=== PATIENT | female | born 1950 | race Caucasian/White ===

== ENCOUNTER → 2019-07-08 08:00 | Outpatient (BNVA) | payer MEDICARE, MEDICAID, SELFPAY | PROVIDERS: Family Provider Nurse Practitioner; PCP Nurse Practitioner; Visit Provider Psychiatry & Neurology Psychiatry | DX: F33.40 Major depressive disorder, recurrent, in remission, unspecified (principal); F41.1 Generalized anxiety disorder | CPT/HCPCS: 99213 ==

== ENCOUNTER → 2019-09-02 07:26 | Outpatient (BNVA) | payer MEDICARE, MEDICAID, SELFPAY | PROVIDERS: Family Provider Nurse Practitioner; PCP Nurse Practitioner; Visit Provider Psychiatry & Neurology Psychiatry | DX: F33.40 Major depressive disorder, recurrent, in remission, unspecified (principal); F41.1 Generalized anxiety disorder; G47.33 Obstructive sleep apnea (adult) (pediatric) | CPT/HCPCS: 99214 ==

== ENCOUNTER → 2019-09-05 10:36 | Outpatient (BNVA) | payer MEDICARE, MEDICAID, SELFPAY | PROVIDERS: Family Provider Nurse Practitioner; PCP Nurse Practitioner; Visit Provider Nurse Practitioner | DX: M25.561 Pain in right knee (principal); E78.2 Mixed hyperlipidemia; K22.70 Barrett's esophagus without dysplasia; F41.1 Generalized anxiety disorder; G47.33 Obstructive sleep apnea (adult) (pediatric); M54.5 Low back pain; M79.605 Pain in left leg | CPT/HCPCS: 73562; 80053; 80061; 81000; 83735; 84443 ==

== ENCOUNTER → 2019-09-30 07:34 | Outpatient (BNVA) | payer MEDICARE, MEDICAID, SELFPAY | PROVIDERS: Family Provider Nurse Practitioner; PCP Nurse Practitioner; Visit Provider Psychiatry & Neurology Psychiatry | DX: F41.1 Generalized anxiety disorder (principal); F33.42 Major depressive disorder, recurrent, in full remission | CPT/HCPCS: 99213 ==

== ENCOUNTER → 2019-11-27 07:45 | Outpatient (BNVA) | payer MEDICARE, MEDICAID, SELFPAY | PROVIDERS: Family Provider Nurse Practitioner; PCP Nurse Practitioner; Visit Provider Psychiatry & Neurology Psychiatry | DX: F33.40 Major depressive disorder, recurrent, in remission, unspecified (principal); G47.33 Obstructive sleep apnea (adult) (pediatric); F41.1 Generalized anxiety disorder | CPT/HCPCS: 99213 ==

== ENCOUNTER → 2020-03-04 07:34 | Outpatient (BNVA) | payer MEDICARE, MEDICAID, SELFPAY | PROVIDERS: Family Provider Nurse Practitioner; PCP Nurse Practitioner; Visit Provider Psychiatry & Neurology Psychiatry | DX: F33.40 Major depressive disorder, recurrent, in remission, unspecified (principal); F41.1 Generalized anxiety disorder; G47.33 Obstructive sleep apnea (adult) (pediatric) | CPT/HCPCS: 99213 ==

== ENCOUNTER → 2020-03-31 10:39 | Outpatient (BNVA) | payer MEDICARE, MEDICAID, SELFPAY | PROVIDERS: Family Provider Nurse Practitioner; PCP Nurse Practitioner; Visit Provider Nurse Practitioner | DX: M54.5 Low back pain (principal); M79.605 Pain in left leg; K22.70 Barrett's esophagus without dysplasia; E78.2 Mixed hyperlipidemia; F41.1 Generalized anxiety disorder | CPT/HCPCS: 80053; 80061; 82607; 84443; 85025 ==

== ENCOUNTER → 2020-06-08 07:38 | Outpatient (BNVA) | payer MEDICARE, MEDICAID, SELFPAY | PROVIDERS: Family Provider Nurse Practitioner; PCP Nurse Practitioner; Visit Provider Psychiatry & Neurology Psychiatry | DX: F33.40 Major depressive disorder, recurrent, in remission, unspecified (principal); F41.1 Generalized anxiety disorder | CPT/HCPCS: 99213 ==

== ENCOUNTER → 2020-08-04 11:35 | Outpatient (BNVA) | payer MEDICARE, MEDICAID, SELFPAY | PROVIDERS: Family Provider Nurse Practitioner; PCP Nurse Practitioner; Visit Provider Orthopaedic Surgery | DX: M54.5 Low back pain (principal); M51.36 Other intervertebral disc degeneration, lumbar region | CPT/HCPCS: 72110 ==

== ENCOUNTER 2020-08-21 08:02 | Outpatient (CLI) | payer MEDICARE, MEDICAID, SELFPAY ==
--- NOTE | 2020-08-21 08:14 | MR_ITS ---
WS: [id number] MRI LUMBAR SPINE NONCONTRAST HISTORY: M54.5 - Low back pain COMPARISON: 12/07/2017 TECHNIQUE: Sagittal and axial multisequence imaging is submitted. Mild increase in lumbar lordosis. L4 anterolisthesis by 3 mm without significant progression since th e prior study. Benign hemangioma within T11. Very mild disc space narrowing and desiccation throughout the lumbar spine. No marrow edema or acute fracture. Nerve root sleeve diverticula noted at T11-12 and T12-L1 on the LEFT. Conus terminates normally at L1. L1-L2: Mild LEFT facet joint arthritis and foraminal narrowing. No significant stenosis. L2-L3: Mild annular disc bulging with facet and ligamentum flavum hypertrophy. Mild foraminal narrowi ng. L3-L4: Mild annular disc bulging and facet joint arthritis. Very minimal encroachment into the thecal sac but no high-grade stenosis. L4-L5: Mild annular disc bulging with moderate to severe facet joint arthritis. Moderate ligamentum f lavum hypertrophy encroaching into the thecal sac with narrowing. Increase fluid in the facet joints bilaterally. The central stenosis has progressed since the prior study. Mild subarticular foraminal n arrowing. L5-S1: Very mild annular disc bulging. RIGHT paracentral annular fissure unchanged. Moderate ligament um flavum hypertrophy and facet arthritis encroaching into the subarticular recess. Only mild subarti cular recess narrowing. Similar to the prior study. Multifocal areas of cortical thinning and atrophy involving the RIGHT kidney similar to the prior pk dy. Unchanged 7 mm cyst in the RIGHT kidney. MR/MR lumbar spine wo con* [id number] IMPRESSION: 1. Mild central stenosis at L4-5 and subarticular recess stenosis which has in creased since 12/07/2017. 2. Increasing facet joint osteoarthritis and mild synovitis at L4-5 and L5-S1. 3. No severe central or foraminal stenosis.
== END 2020-08-21 08:03 | disposition home or self-care (01) ==
LOC: RADWPI 08:06
PROVIDERS: PCP Nurse Practitioner; Visit Provider Orthopaedic Surgery
DX: M54.5 Low back pain (principal); M79.605 Pain in left leg; M48.061 Spinal stenosis, lumbar region without neurogenic claudication; M47.816 Spondylosis without myelopathy or radiculopathy, lumbar region; M65.88 Other synovitis and tenosynovitis, other site
CPT/HCPCS: 72148

== ENCOUNTER → 2020-10-12 12:39 | Day surgery (SDC) | payer MEDICARE, MEDICAID, SELFPAY | PROVIDERS: PCP Nurse Practitioner; Visit Provider Orthopaedic Surgery | DX: Z01.818 Encounter for other preprocedural examination (principal) | CPT/HCPCS: 93005 ==

== ENCOUNTER → 2020-10-13 10:08 | Outpatient (BNVA) | payer MEDICARE, MEDICAID, SELFPAY | PROVIDERS: PCP Nurse Practitioner; Visit Provider Nurse Practitioner | DX: Z01.812 Encounter for preprocedural laboratory examination (principal); Z20.822 Contact with and (suspected) exposure to COVID-19; M48.062 Spinal stenosis, lumbar region with neurogenic claudication; E78.2 Mixed hyperlipidemia | CPT/HCPCS: 80053; 80061; 85025; 87635 ==

== ENCOUNTER → 2020-10-14 07:03 | Outpatient (BNVA) | payer MEDICARE, MEDICAID, SELFPAY | PROVIDERS: PCP Nurse Practitioner; Visit Provider Psychiatry & Neurology Psychiatry | DX: F33.40 Major depressive disorder, recurrent, in remission, unspecified (principal); F41.1 Generalized anxiety disorder; G47.33 Obstructive sleep apnea (adult) (pediatric) | CPT/HCPCS: 99213 ==

== ENCOUNTER 2020-10-19 05:51 | Day surgery (SDC) | payer MEDICARE, MEDICAID, SELFPAY ==
[2020-10-12 09:26] VITALS: BMI 31.9
--- NOTE | 2020-10-12 12:39 | ECG_ITS ---
Test Date: 2020-10-12 Pat Name: Josi Ambrocio Department: Room: Gender: Female Bank Guard: : [id number] Requested By: David Blackman Order Number: [id number] Trav MD: Cee Leal M.D. Measurements Intervals [place] Rate: 88 P: 24 MO: 167 QRS: -48 QRSD: 81 T: 35 QT: 363 QTc: 441 Interpretive Statements SINUS RHYTHM LEFT ANTERIOR FASCICULAR BLOCK [QRS AXIS <= -45, QR IN I, RS IN II] MINIMAL VOLTAGE CRITERIA FOR LVH, CONSIDER NORMAL VARIANT [MEETS CRITERIA IN ONE OF: R(aVL), S(V1), R(V5), R(V5/V6)+S(V1)] POSSIBLE ANTERIOR MYOCARDIAL INFARCTION [30 ms Q WAVE IN V3/V4, OR R < 0.2 mV IN V4], PROBABLY OLD Compared to ECG 08/21/2016 13:47:45 Left anterior fascicular block now present Myocardial infarct finding now present Ventricular premature complex(es) no longer present Left-axis deviation no longer present Electronically Signed On 10-12-2020 22:28:48 CDT by Cee Leal M.D. [id number]
--- NOTE | 2020-10-12 16:37 | ANES.PREANE2 ---
Pre-Anesthetic Assessment Pre-Anesthetic Assessment: Height/Weight: Height 1.55 m Weight 76.657 kg Proposed Procedure: Operation Date: 10/19/20 08:45 Proposed Procedures p MIs decompression L3/4 Decompression L4/5 34457 [id number] M48.062(Not Applicable) - Doroteo Rebolledo, DO Was Beta Hortencia taken within 24 hours: N/A Was Clonidine taken within 24 hours: N/A Social: Social History: No alcohol and No tobacco Exam: Pre-Anes Outpt Exam: alert, oriented x 3, clear to auscultation bilaterally and regular rate & rhythm Airway: Submandibular: WNL Cervical ROM: WNL MP: 2 Dentition: Chipped Additional comments: Poor dentition, several missing Pulmonary: Pulmonary: Sleep apnea GI: GI: GERD Metabolic: Metabolic: Hyperlipidemia Musc/skel: Musc/skel: Lower Back Pain Neuropsych: Neuropsych: Anxiety and Depression Anesthetic Plan: ASA status: 3 Anesthesia: General Risk of > 500 ml blood loss (7ml/kg in children): No PFSH Anesthesia PFSH: Medical History Alcohol dependence, in remission Ray's esophagus without dysplasia Generalized anxiety disorder Lumbar pain with radiation down left leg Mixed hyperlipidemia Obstructive sleep apnea Recurrent depressive disorder, in remission Surgical History History of carpal tunnel release of both wrists History of cholecystectomy History of colonoscopy 2017 at [facility] with Dr. Rutledge History of esophagogastroduodenoscopy (EGD) 2017 at [facility] with Dr. Rutledge History of release of tendon Left hand Status post left foot surgery ORIF left foot with plate Status post total shoulder arthroplasty LEFT Family History Mother Cancer Lung cancer Sister Scleroderma Other Lung disease Social History Smoking and tobacco status: never smoked Second hand smoke exposure: No Smoking risk assessment/counseling performed?: No Alcohol intake: never Desire information about alcohol rehabilitation?: No Counseling given: No Desire information about substance/drug rehabilitation?: No Counseling given: No Adopted: No Caregiver/support person: No Lives independently: Yes Marital status: Current occupational status: retired History of recent travel: No Current gender identity: Female Data Anesthesia Cardiac Studies: No Data to Display
[2020-10-19] VITALS (7 sets, daily range): BP systolic 129–172; BP diastolic 89–111; PULSE 77–115; RESP 13–21; TEMP 36.1–36.7; O2SAT 92–99
--- NOTE | 2020-10-19 | XR_ITS ---
WS: [id number] Lumbar spine, C-arm fluoroscopy view, 10/19/2020 Clinical Data: decompression L3/4 L4/5 Comparison: Lumbar spine, 08/02/2020. Findings: Dr. Rebolledo performed a lumbar decompression at L3-L4 and L4-L5. XR/XR lumbar spine 1V [id number] Impression: Decompression at L3-L4 and L4-L5.
[2020-10-19] MEDS: sodium chloride 0.9% 1,000 ML 30 ML IV (06:15)
--- NOTE | 2020-10-19 06:31 | P.ANESUD_ITS ---
Pre-Anesthetic Update Pre-Anesthetic Assessment: Date of Surgery/Procedure: 10/19/20 Preop Alda gnosis: lumbar stenosis Proposed Procedure: Operation Date: 10/19/20 07:00 Proposed Procedures p MIs decompression L3/4 Decompression L4/5 26179 48538 M48.062(Not Applicable) - Doroteo Rebolledo, DO Any changes to Pre-Anesthetic Assessment?: No Last Intake: Intake Last Liquid Date 10/18/20 Last Liquid Time 21:00 Last Solid Date 10/18/20 Last Solid Time 18:00 Vitals: Temperature 97.0 F L 10/19/20 06:07 Temperature Source Temporal Artery S can 10/19/20 06:07 Pulse Rate 98 10/19/20 06:07 Respiratory Rate 16 10/19/20 06:07 Blood Pressure 130/98 10/19/20 06:07 Blood Pressure Jeanie n 108 10/19/20 06:07 Pulse Oximetry 99 10/19/20 06:07 Oxygen Delivery Me thod 10/19/20 06:07 Exam: Pre-Anes Outpt Exam: alert, oriented x 3, clear to auscultation bilaterally and regular rate & rhythm Cardiac Studies: No Data to Display
--- NOTE | 2020-10-19 06:38 | PM.HP ---
Providers/Chief Complaint Primary Care Provider: GHANSHYAM MorelP-C Chief Complaint: MIs decompression 25470 L3/4 Decompression L4/5 History of Present Illness Josi Ambrocio is a 70 year old female Onset: no known injury Duration: gradual Characteristics: sharp, dull aching Severity: severe Location: lumbar Radiating symptoms: left leg Aggravating factors: proglonged sitting, driving. Alleviating factors: nothing Neuro deficits: Patient reports numbness, tingling, weakness, Patient denies incontinence of bowel/bladder, saddle anesthesia. Prior tx: Patient has had injections by Dr. Quiñones in the past however states that they did not help with the pain. Lobito has also completed physical therapy with out [facility] Review of Systems Narrative: General ROS: negative for weight changes, fever ENT ROS: negative for nasal congestion, drainage or bleeding, sore throat, dysphagia or ear pain Eyes: PERRL Hematological and Lymphatic ROS: negative for swollen glands or abnormal bleeding Endocrine ROS: negative for polyuria/polydpsia or new changes in weight Respiratory ROS: negative for cough, shortness of breath, or wheezing Cardiovascular ROS: negative for chest pain or dyspnea on exertion Gastrointestinal ROS: negative for reflux, abdominal pain, change in bowel habits, or black or bloody stools Musculoskeletal ROS: negative for back pain, neck pain, or joint pain or swelling except for current problem Neurological ROS: negative for TIA or stoke symptoms Skin: no rashes Medications/Allergies Home Medications Medication Instructions Recorded Confirmed Last Taken Type nitroglycerin 0.3 mg sublingual 0.3 mg SUBLINGUAL Q5M 07/05/19 10/13/20 Unknown History tablet lactobacillus combination no.8 3 3,000 mmu cells PO DAILY #60 cap 03/31/20 10/19/20 10/18/20 Rx billion cell capsule magnesium oxide 400 mg PO BID #60 tab 03/31/20 10/19/20 10/18/20 Rx atorvastatin 40 mg tablet 40 mg PO DAILY #30 tab 10/13/20 10/19/20 10/18/20 Rx pantoprazole 40 mg tablet,delayed 40 mg PO BID #60 tab 10/13/20 10/19/20 10/18/20 Rx release tizanidine 4 mg capsule 4 mg PO TID PRN #90 cap 10/13/20 10/19/20 10/18/20 Rx paroxetine HCl 40 mg tablet 40 mg PO DAILY #30 tab 10/14/20 10/19/20 10/18/20 Rx Remeron 15 mg PO BEDTIME 10/19/20 10/19/20 10/18/20 History gabapentin [Neurontin] 600 mg PO TID PRN 10/19/20 10/19/20 10/18/20 History Allergies Allergy/AdvReac Type Severity Reaction Status Date / Time Penicillins Allergy Severe Hives Verified 10/12/20 12:31 PFSH Acute PFSH: Medical History Alcohol dependence, in remission Ray's esophagus without dysplasia Generalized anxiety disorder Lumbar pain with radiation down left leg Mixed hyperlipidemia Obstructive sleep apnea Recurrent depressive disorder, in remission Surgical History History of carpal tunnel release of both wrists History of cholecystectomy History of colonoscopy 2017 at [facility] [place] with Dr. Rutledge History of esophagogastroduodenoscopy (EGD) 2017 at [facility] [place] with Dr. Rutledge History of release of tendon Left hand Status post left foot surgery ORIF left foot with plate Status post total shoulder arthroplasty LEFT Family History Mother Cancer Lung cancer Sister Scleroderma Other Lung disease Social History Smoking and tobacco status: never smoked Second hand smoke exposure: No Smoking risk assessment/counseling performed?: No Alcohol intake: former Desire information about alcohol rehabilitation?: No Counseling given: No Desire information about substance/drug rehabilitation?: No Counseling given: No Adopted: No Caregiver/support person: No Lives independently: Yes Marital status: Current occupational status: retired History of recent travel: No Current gender identity: Female Vitals/I&O/Wt Last Vital Signs Temp 97.0 F L 10/19/20 06:07 Pulse 98 10/19/20 06:07 Resp 16 10/19/20 06:07 BP 130/98 10/19/20 06:07 Pulse Ox 99 10/19/20 06:07 Physical Exam Narrative: EXAM NARRATIVE: CONSTITUTIONAL: The patient is a normal appearing [] in no apparent distress. GENERAL: Patient in no acute distress. CARDIAC: Regular rate and rhythm. CHEST: Normal inspiratory effort, normal respiratory rate. ABDOMEN: Soft and nontender. SKIN: Clear, warm and intact. NEURO?PSYCH: The patient is alert and oriented to person, place and time. Sensorv /SILT Motor StrengthShoulder abduction C5 5/5Wrist extension C6 5/5Elbow extension C7 5/5Hand Research Methods Instructor C8 5/5Finger abduction T15/5 Radial/ Ulnar/ Median n intact LowerSensory (SILT)Motor StrengthHin flexion L2/3Ant/inner thigh 5/5Hip adduction L2/3 5/5Knee extension L4 Lat thigh, 5/5Toe dorsiflexion L5 5/5Ankle dorsiflexion L5/ O21Ndtxzyx flexion S1 5/5 DTRBleeps 2+Triceps 2+Brachioradialis 2+Patellar 2+Achilles 2+ MUSCULOSKELETAL: [] UPPEREXTREMITIES: The patient had full active ROM in fingers, wrist, elbow, and shoulder. The patient demonstrated ability to fully flex/extend/abduct/adduct fingers, make ok sign, cross 2nd/3rd digits, extend 1st digit fully.. Radial pulse 2+, CR<2 seconds. LOWER EXTREMITIES: Pt has full, active ROM of toes, ankle, knee, and hip. Dorsalis pedis/posterior tibialis pulses 2+, CR<2 seconds. SPINE: Skin warm, dry, intact. A&P Assessment and plan (1) Lumbar stenosis with neurogenic claudication: MIS decompression Status: Acute Attestations Medical Necessity Statement*: failed conservative tx Coding Level of Care Code Acute Chief Technologist for [facility] Fwd Diagnoses Lumbar stenosis with neurogenic claudication M48.062
[2020-10-19] MEDS: clindamycin 600 MG/50 ML PREMIX 100 MG IV (07:04)
--- NOTE | 2020-10-19 08:12 | PM.OP ---
Operative Report Date of procedure: October 19, 2020 Pre-op Diagnosis: lumbar stenosis Post-op diagnosis: same Procedure Done: 1. Right L3/4 laminectomy with partial facetectomy 2. Right L4/5 laminectomy with partial facetectomy Procedure: 1. Right L3/4 laminectomy with partial facetectomy 2. Right L4/5 laminectomy with partial facetectomy Patient is brought to the operative suite. After undergoing anesthesia they are placed in the supine position. All areas of impingement are well padded. Patient is then prepped and draped in the normal sterile fashion. A skin incision is made over the L3/4 level. This is confirmed under c-arm guidance. A series of dilators are passed and the tubular retractor is docked on the L3 lamina. A bovie is used to clear the soft tissue off the lamina and the L 3/4 facet joint. A high speed kevin is then used to perform the laminectomy and take down the medial aspect of the L 3/4 facet joint. A kerrison rongeure was then used to take down the remaining lamina and smooth the edge of the laminectomy up to the point where the ligamentum flavum attaches. Attention was then brought to the medial aspect of the facet joint. The remaining medial aspect of the superior and inferior aspect of the facet joint were taken down with the kerrison from the pedicle of L3 to L 4. The facet joint had significant hypertrophy. Attention was then brought to the Ligamentum Flavum. The ligament was taken down from the lamina of L3 to L4 and out medially to the remaining facet joint. The ligament was thick. The dura was then exposed. The dura was in good repair. The L3 nerve was then traced with a curette out the L3/4 foramen and found to be adequately decompressed. The L4 nerve was traced with a curette around the L4 pedicle. The lateral recess was opened with a kerrison helping to further decompress the L4 nerve. Wound is then irrigated copiously with saline and surgiflo is used to stop any bleeding. The tubular retractor is removed A skin incision is made over the L4/5 level. This is confirmed under c-arm guidance. A series of dilators are passed and the tubular retractor is docked on the L4 lamina. A bovie is used to clear the soft tissue off the lamina and the L 4/5 facet joint. A high speed kevin is then used to perform the laminectomy and take down the medial aspect of the L 4/5 facet joint. A kerrison rongeure was then used to take down the remaining lamina and smooth the edge of the laminectomy up to the point where the ligamentum flavum attaches. Attention was then brought to the medial aspect of the facet joint. The remaining medial aspect of the superior and inferior aspect of the facet joint were taken down with the kerrison from the pedicle of L4 to L 5. The facet joint had significant hypertrophy. Attention was then brought to the Ligamentum Flavum. The ligament was taken down from the lamina of L4 to L5 and out medially to the remaining facet joint. The ligament was thick. The dura was then exposed. The dura was in good repair. The L4 nerve was then traced with a curette out the L4/5 foramen and found to be adequately decompressed. The L5 nerve was traced with a curette around the L5 pedicle. The lateral recess was opened with a kerrison helping to further decompress the L5 nerve. Wound is then irrigated copiously with saline and surgiflo is used to stop any bleeding. The tubular retractor is removed and the wound is closed with vicryl and monocryl suture. Glue is then used to protect the wound. A sterile dressing is then placed. Patient was then placed in the supine position and transferred to the PACU in stable condition.
--- NOTE | 2020-10-19 08:44 | SUR.PHASEI ---
0841 PATIENT TO OPS AT THIS TIME. DENIES PAIN. RR EVEN AND UNLABORED. TOLERATING ICE CHIPS.
--- NOTE | 2020-10-19 19:29 | ANE.PACU2 ---
Inpatient post-anesthesia follow up: Airway intact: Yes Vital signs: Temperature 97.9 F Pulse Rate 77 Respiratory Rate 16 Blood Pressure 154/91 Pulse Oximetry 99 Oxygen Delivery Me thod Room Air Oxygen Flow Rate 3 Fraction of Inspir ed Oxygen Hydration adequate: Yes Nausea and vomiting: No Pain level: 2 Mental status: Baseline
== END 2020-10-19 09:30 | disposition home or self-care (01) ==
PROVIDERS: PCP Nurse Practitioner; Visit Provider Orthopaedic Surgery
PROC: (CPT 63005; principal; 2020-10-19 07:00)
DX: M48.062 Spinal stenosis, lumbar region with neurogenic claudication (principal); G47.33 Obstructive sleep apnea (adult) (pediatric); E78.2 Mixed hyperlipidemia
CPT/HCPCS: 63047; 63048; 72020; 76000; J1100; J2405; J2704; J2710; J3010; J3490; J7030

== ENCOUNTER → 2020-12-29 12:08 | Outpatient (BNVA) | payer MEDICARE, MEDICAID, SELFPAY | PROVIDERS: PCP Nurse Practitioner; Visit Provider Nurse Practitioner | DX: R53.83 Other fatigue (principal) | CPT/HCPCS: 80053; 81000; 82607; 84443; 85025 ==

== ENCOUNTER → 2020-12-30 09:34 | Outpatient (BNVA) | payer MEDICARE, MEDICAID, SELFPAY | PROVIDERS: PCP Nurse Practitioner; Visit Provider Nurse Practitioner | DX: R53.83 Other fatigue (principal) | CPT/HCPCS: 71046 ==

== ENCOUNTER → 2021-01-08 09:19 | Outpatient (BNVA) | payer MEDICARE, MEDICAID, SELFPAY | PROVIDERS: PCP Nurse Practitioner; Visit Provider Nurse Practitioner | DX: R53.83 Other fatigue (principal) | CPT/HCPCS: 85025 ==

== ENCOUNTER → 2021-02-09 08:02 | Outpatient (BNVA) | payer MEDICARE, MEDICAID, SELFPAY | PROVIDERS: PCP Nurse Practitioner; Visit Provider Psychiatry & Neurology Psychiatry | DX: F33.40 Major depressive disorder, recurrent, in remission, unspecified (principal); F41.1 Generalized anxiety disorder; G47.33 Obstructive sleep apnea (adult) (pediatric); F10.10 Alcohol abuse, uncomplicated | CPT/HCPCS: 99214 ==

== ENCOUNTER → 2021-03-10 07:45 | Outpatient (BNVA) | payer MEDICARE, MEDICAID, SELFPAY | PROVIDERS: PCP Nurse Practitioner; Visit Provider Psychiatry & Neurology Psychiatry | DX: F33.40 Major depressive disorder, recurrent, in remission, unspecified (principal); F41.1 Generalized anxiety disorder; G47.33 Obstructive sleep apnea (adult) (pediatric); F10.10 Alcohol abuse, uncomplicated | CPT/HCPCS: 99213 ==

== ENCOUNTER → 2021-05-10 07:32 | Outpatient (BNVA) | payer MEDICARE, MEDICAID, SELFPAY | PROVIDERS: PCP Nurse Practitioner; Visit Provider Psychiatry & Neurology Psychiatry | DX: F33.40 Major depressive disorder, recurrent, in remission, unspecified (principal); F41.1 Generalized anxiety disorder; F10.10 Alcohol abuse, uncomplicated | CPT/HCPCS: 99214 ==

== ENCOUNTER → 2021-07-21 11:39 | Outpatient (BNVA) | payer MEDICARE, MEDICAID, SELFPAY | PROVIDERS: PCP Nurse Practitioner; Visit Provider Nurse Practitioner | DX: E78.2 Mixed hyperlipidemia (principal); K22.70 Barrett's esophagus without dysplasia; M79.605 Pain in left leg | CPT/HCPCS: 80053; 80061; 84443 ==

== ENCOUNTER → 2021-08-19 13:29 | Outpatient (BNVA) | payer MEDICARE, MEDICAID, SELFPAY | PROVIDERS: PCP Nurse Practitioner; Visit Provider Psychiatry & Neurology Psychiatry | DX: F33.40 Major depressive disorder, recurrent, in remission, unspecified (principal); F41.1 Generalized anxiety disorder; F10.10 Alcohol abuse, uncomplicated | CPT/HCPCS: 99214 ==

== ENCOUNTER → 2021-10-04 11:38 | Outpatient (BNVA) | payer MEDICARE, MEDICAID, SELFPAY | PROVIDERS: PCP Nurse Practitioner; Visit Provider Nurse Practitioner | DX: E03.8 Other specified hypothyroidism (principal); E78.2 Mixed hyperlipidemia; K22.70 Barrett's esophagus without dysplasia; M79.605 Pain in left leg | CPT/HCPCS: 84439; 84443; 84481 ==

== ENCOUNTER → 2022-02-02 11:40 | Outpatient (BNVA) | payer MEDICARE, MEDICAID, SELFPAY | PROVIDERS: PCP Nurse Practitioner; Visit Provider Nurse Practitioner | DX: E03.8 Other specified hypothyroidism (principal); E78.2 Mixed hyperlipidemia; M79.605 Pain in left leg; K22.70 Barrett's esophagus without dysplasia | CPT/HCPCS: 80053; 80061; 84443 ==

== ENCOUNTER → 2022-05-23 11:05 | Outpatient (BNVA) | payer MEDICARE, MEDICAID, SELFPAY | PROVIDERS: PCP Nurse Practitioner; Visit Provider Nurse Practitioner | DX: E78.2 Mixed hyperlipidemia (principal); R10.30 Lower abdominal pain, unspecified | CPT/HCPCS: 80053; 81000; 85025 ==

== ENCOUNTER 2022-06-14 12:35 | Outpatient (CLI) | payer MEDICARE, MEDICAID, SELFPAY ==
[2022-06-14] MEDS: iohexol 350 mg/mL 500 mL Btl (per mL) PO (14:05)
--- NOTE | 2022-06-14 15:00 | CT_ITS ---
WS: [id number] CT ABDOMEN PELVIS TECHNIQUE: Noncontrast CT of the abdomen and pelvis with coronal and sagittal reformatted images. CLINICAL INFORMATION: R10.30 - Lower abdominal pain, unspecified COMPARISON: CT January 20, 2014 DLP: 485.[address] scans at [facility] use at least one of these dose optimization techniques: automated e xposure control; mA and/or kV adjustment per patient size (includes targeted exams where dose is matc hed to clinical indication); or iterative reconstruction. FINDINGS: Noncontrast liver is normal. Small to moderate esophageal hiatal hernia. Lung bases are well aerated. Normal noncontrast spleen. Fatty atrophy of the pancreas. Adrenal glands are normal. RIGHT renal atr ophy. No hydronephrosis in either kidney. Aortic calcification. Tiny fat-containing umbilical hernia. Sigmoid diverticulosis. No evidence of acute diverticulitis. Slight anterolisthesis L4 on L5. CT/CT abdomen pelvis wo con [id number] IMPRESSION: 1. Sigmoid diverticulosis. No evidence of acute diverticulitis. Tortuous sigmo id colon. 2. Prior cholecystectomy. 3. Small moderate esophageal hiatal hernia. 4. No hydronephrosis in either kidney. RIGHT renal atrophy is unchanged. 5. Tiny fat-containing umbilical hernia. 6. No other remarkable findings.
== END 2022-06-14 12:36 | disposition home or self-care (01) ==
LOC: RAD 12:37
PROVIDERS: PCP Nurse Practitioner; Visit Provider Nurse Practitioner
DX: K57.30 Diverticulosis of large intestine without perforation or abscess without bleeding; K42.9 Umbilical hernia without obstruction or gangrene; Z90.49 Acquired absence of other specified parts of digestive tract; K44.9 Diaphragmatic hernia without obstruction or gangrene; N26.1 Atrophy of kidney (terminal)
CPT/HCPCS: 74176; Q9967

== ENCOUNTER → 2022-08-25 15:49 | Outpatient (BNVA) | payer MEDICARE, MEDICAID, SELFPAY | PROVIDERS: PCP Nurse Practitioner; Visit Provider Nurse Practitioner | DX: E03.8 Other specified hypothyroidism (principal); E78.2 Mixed hyperlipidemia; M79.605 Pain in left leg; K22.70 Barrett's esophagus without dysplasia; E78.1 Pure hyperglyceridemia | CPT/HCPCS: 80053; 80061; 84443 ==

== ENCOUNTER → 2022-12-01 15:08 | Outpatient (BNVA) | payer MEDICARE, OTHER, SELFPAY | PROVIDERS: PCP Nurse Practitioner; Visit Provider Nurse Practitioner | DX: E83.52 Hypercalcemia (principal); M79.605 Pain in left leg | CPT/HCPCS: 80053; 81000 ==

== ENCOUNTER → 2023-03-28 14:56 | Outpatient (BNVA) | payer MEDICARE, MEDICAID, SELFPAY | PROVIDERS: PCP Nurse Practitioner; Visit Provider Nurse Practitioner | DX: F41.1 Generalized anxiety disorder (principal); I10 Essential (primary) hypertension; E78.2 Mixed hyperlipidemia; E03.8 Other specified hypothyroidism; E55.9 Vitamin D deficiency, unspecified | CPT/HCPCS: 80053; 80061; 82306; 82607; 84443; 85025 ==

== ENCOUNTER → 2023-09-05 15:18 | Outpatient (BNVA) | payer MEDICARE, SELFPAY | PROVIDERS: PCP Nurse Practitioner; Visit Provider Nurse Practitioner | DX: E78.2 Mixed hyperlipidemia (principal); E03.8 Other specified hypothyroidism; E55.9 Vitamin D deficiency, unspecified | CPT/HCPCS: 80053; 80061; 82306; 82607; 84443; 85025 ==

== ENCOUNTER 2023-09-26 11:10 | Outpatient (CLI) | payer MEDICARE, SELFPAY ==
--- NOTE | 2023-09-26 11:00 | MM_ITS ---
WS: [id number] BILATERAL 3D TOMOSYNTHESIS DIGITAL SCREENING MAMMOGRAPHY WITH CAD CLINICAL INFORMATION: Z12.31 - Encounter for screening mammogram for malignant ... HISTORY: Screening mammogram. No current complaints. COMPARISON: 2017 TECHNIQUE: Bilateral CC and MLO views. FINDINGS: Scattered fibroglandular densities bilaterally. No suspicious focal mass, asymmetry, calcifications, or architectural distortion. No evidence of malignancy. Punctate and lucent centered calcifications. MM/[place] [id number] IMPRESSION: BI-RADS: 2-Benign FOLLOW UP: 1 Year Follow-up Recommend return to annual screening mammography.
== END 2023-09-26 11:11 | disposition home or self-care (01) ==
LOC: MOBLMAM 11:21
PROVIDERS: PCP Nurse Practitioner; Visit Provider Nurse Practitioner
DX: Z12.31 Encounter for screening mammogram for malignant neoplasm of breast (principal); R92.323 Mammographic fibroglandular density, bilateral breasts; R92.1 Mammographic calcification found on diagnostic imaging of breast
CPT/HCPCS: 77063; 77067

== ENCOUNTER → 2024-01-18 09:27 | Outpatient (BNVA) | payer MEDICARE, SELFPAY | PROVIDERS: PCP Nurse Practitioner; Visit Provider Nurse Practitioner | DX: E55.9 Vitamin D deficiency, unspecified (principal); I10 Essential (primary) hypertension; E78.2 Mixed hyperlipidemia; E03.8 Other specified hypothyroidism | CPT/HCPCS: 80053; 80061; 82306; 84443; 85025 ==

== ENCOUNTER → 2024-01-22 09:53 | Outpatient (BNVA) | payer MEDICARE, SELFPAY | PROVIDERS: PCP Nurse Practitioner; Visit Provider Nurse Practitioner | DX: M47.894 Other spondylosis, thoracic region (principal); M54.9 Dorsalgia, unspecified | CPT/HCPCS: 72072 ==

== ENCOUNTER 2024-06-16 18:27 | Emergency (ER) | payer MEDICARE, MEDICAID, SELFPAY ==
[2024-06-16 18:28] VITALS: BP 194/110; PULSE 86; RESP 17; TEMP 36.1; O2SAT 96; BMI 30.2
[2024-06-16 18:49] VITALS: BP 194/110; PULSE 74; RESP 16; O2SAT 98
--- NOTE | 2024-06-16 18:52 | XRR_ITS ---
PROCEDURE INFORMATION: Exam: XR Left Knee Exam date and time: 06/16/2024 7:05 PM Age: 73 years old Clinical indication: PT arrives via EMS with complaints of left knee pain. PT was moving a deep freeze 3 days ago and twisted her left knee. PT states today she was playing with dogs and heard a tear in the back of the knee. PT was unable to bear weight at the scene. ; Additional info: L knee pain TECHNIQUE: Imaging protocol: Radiologic exam of the left knee. Views: 3 views. COMPARISON: No relevant prior studies available. FINDINGS: Bones/joints: No evidence of acute fracture or subluxation. Moderate joint effusion. Background of mild-moderate tricompartmental osteoarthritis with small marginal osteophytes. Chondrocalcinosis of the menisci noted. Soft tissues: No gross soft tissue abnormality. XR/XR knee LT 3V* [id number] IMPRESSION: 1. Joint effusion without convincing evidence of acute fracture or subluxation concerning for internal derangement. Correlation with MRI of the left knee is recommended. If not clinically feasible, consider CT of the knee.
[2024-06-16] MEDS: morphine 4 mg/mL SDV 1 mL IVP (19:01)
[2024-06-16] MEDS: ondansetron 2 mg/ML SDV 2 mL 4 MG IVP (19:01)
--- NOTE | 2024-06-16 19:24 | W.ED.EXTPRO ---
HPI - Extremity Problem General: Chief complaint: Extremity Injury, Lower Stated complaint: left knee pain Time Seen by Provider: 06/16/24 18:30 History of Present Illness: 73-year-old female who fell to tearing sensation behind her knee earlier in the day. She complains of left knee pain, posteriorly. Inability to bear weight. Pain radiates distally and proximally to some degree. Pain is more lateral than medial. It is to the back of the knee and not the front of the knee. No fever. No redness or swelling. Related Data Previous Rx's ?Medication ?Instructions ?Recorded lactobacillus combination no.8 3 See Rx Instructions PO DAILY #1 cap 10/04/21 billion cell capsule magnesium oxide 400 mg PO BID #1 tab 10/04/21 paroxetine HCl 40 mg tablet See Rx Instructions .Route 08/31/23 .COMPLEX #30 tabs mupirocin 2 % topical ointment 1 applic topical BID PRN skin 09/05/23 irritation #22 grams mirtazapine 15 mg tablet See Rx Instructions .Route 09/27/23 .COMPLEX #30 tabs gabapentin 600 mg tablet 600 mg PO TID PRN nerve pain #90 01/18/24 (Neurontin) tabs icosapent ethyl 1 gram capsule 2 g (2 x 1 gram) PO BID #120 caps 01/18/24 (Vascepa) levothyroxine 25 mcg tablet 25 mcg PO DAILY #30 tabs 01/18/24 pantoprazole 40 mg tablet,delayed 40 mg PO BID #60 tabs 01/18/24 release tizanidine 4 mg capsule 4 mg PO .at bedtime lumbar pain 01/18/24 #30 caps valsartan 80 mg tablet (Diovan) 80 mg PO DAILY #30 tabs 01/18/24 acamprosate 333 mg tablet,delayed 666 mg (2 x 333 mg) PO TID #180 02/08/24 release tabs cholecalciferol (vitamin D3) 125 250 mcg (2 x 125 mcg (5,000 unit)) 04/02/24 mcg (5,000 unit) capsule PO DAILY #60 caps rosuvastatin 20 mg tablet (Crestor) 20 mg PO DAILY #30 tabs 04/02/24 nitroglycerin 0.4 mg sublingual See Rx Instructions .Route 05/10/24 tablet .COMPLEX #25 tabs ketorolac 10 mg tablet 10 mg PO TID PRN pain #10 tabs 06/16/24 Allergies Allergy/AdvReac Type Severity Reaction Status Date / Time Penicillins Allergy Severe Hives Verified 03/22/24 10:02 [facility] PFS: Medical History Adult onset hypothyroidism Mammogram declined Psychiatric care Lumbar pain with radiation down left leg Ray's esophagus without dysplasia Mixed hyperlipidemia Obstructive sleep apnea Alcohol dependence, in remission Generalized anxiety disorder Surgical History History of back surgery October 2020 at [facility] Dr. Rebolledo History of cataract extraction Both eye 2022 Dr. Roberson History of colonoscopy 2016 at [facility] [place]. Rutledge History of esophagogastroduodenoscopy (EGD) 2017 at [facility] [place] with Dr. Rutledge Status post left foot surgery ORIF left foot with plate History of release of tendon Left hand History of cholecystectomy Status post total shoulder arthroplasty LEFT History of carpal tunnel release of both wrists Family History Mother Cancer Lung cancer Sister Scleroderma Other Lung disease Social History Smoking and tobacco/nicotine status: never used tobacco/nicotine Second hand smoke exposure: No Alcohol intake: former Substance/Drug Use: unknown Adopted: No Caregiver/support person: No Lives independently: Yes Household members: none Marital status: service: No Current occupational status: retired Current occupational exposures/hazards: No Do you think of yourself as: Straight/Heterosexual Current gender identity: Female Physical Exam Const: COMMON NORMALS: no acute distress GENERAL APPEARANCE: cooperative; not ill appearing and not frail appearing HENMT: COMMON NORMALS: normocephalic, atraumatic and Normal external nose present HEAD & SCALP: normocephalic and atraumatic FACE & SINUS: normal facial exam and face symmetric NOSE: Normal external nose present Eye: COMMON NORMALS: Equal, round and reactive pupils present and EOMs intact bilaterally PUPIL: Yes Equal, round and reactive pupils present Neck/C-Spine: GENERAL: Yes trachea midline Chest: CHEST: Yes Symmetrical chest wall rise Resp: COMMON NORMALS: normal respiratory effort, No retractions and No use of accessory muscles Cardio: COMMON NORMALS: regular rate and regular rhythm RATE: regular rate RHYTHM: regular rhythm GI: COMMON NORMALS: Normal to inspection, nondistended, normoactive bowel sounds present Extremity: COMMON NORMALS: no pedal edema NARRATIVE EXTREMITY EXAM: Exam the left lower extremity reveals no deformity. There is tenderness over the posterior lateral left knee. There is minimal knee effusion. Movement is intact. No deformity. Minimal lateral hip tenderness, no anterior hip joint tenderness. No pain on logroll testing. Pulses are normal distally. Neuro: KEVIN COMA SCALE: document GCS findings Kevin coma scale eye opening: Spontaneous Kevin coma scale verbal response: Orientated [place] coma scale motor response: Obey commands [place] coma scale total score: 15 SENSORY EXAM: Yes extremities (intact) Psych: COMMON NORMALS: speech normal SPEECH: Yes normal speech Skin: COMMON NORMALS: no rashes or lesions noted GENERAL SKIN EXAM: no rashes or lesions noted Course Vital Signs: Vital signs: Vital Signs Temperature 97.0 F L 06/16/24 18:28 Pulse Rate 66 06/16/24 19:47 Respiratory Rate 16 06/16/24 19:47 Blood Pressure 152/83 06/16/24 19:47 Pulse Oximetry 96 06/16/24 19:47 Oxygen Delivery Me thod Room Air 06/16/24 18:49 MDM - Extremity (Nontraumatic) Medical Decision Making Exam reveals a mild effusion. It is present on x-ray. No fracture apparent on x-ray. Could be lateral meniscus tear. Mild arthritic change present. Blood pressure was initially high. Improved with pain control. Ice, knee immobilizer for weightbearing and crutches. Outpatient follow-up. Lab Data Radiology Impressions Knee X-Ray 06/16/24 18:52 IMPRESSION: 1. Joint effusion without convincing evidence of acute fracture or subluxation concerning for internal derangement. Correlation with MRI of the left knee is recommended. If not clinically feasible, consider CT of the knee. All radiology interpretation(s) finalized by discharge Discharge Plan Discharge Patient Disposition: Home Clinical Impression: Left knee injury Qualifiers: Encounter type: initial encounter Qualified Code(s): S89.92XA - Unspecified injury of left lower leg, initial encounter Condition: Stable Prescriptions: New ketorolac 10 mg tablet 10 mg PO TID PRN (Reason: pain) Qty: 10 0RF No Action mupirocin 2 % ointment 1 applic topical BID PRN (Reason: skin irritation) Qty: 22 0RF Neurontin 600 mg tablet 600 mg PO TID PRN (Reason: nerve pain) Qty: 90 5RF icosapent ethyl [Vascepa] 1 gram capsule 2 g PO BID Qty: 120 5RF levothyroxine 25 mcg tablet 25 mcg PO DAILY Qty: 30 5RF pantoprazole 40 mg tablet,delayed release (DR/EC) 40 mg PO BID Qty: 60 5RF tizanidine 4 mg capsule 4 mg PO .at bedtime Qty: 30 5RF valsartan [Diovan] 80 mg tablet 80 mg PO DAILY Qty: 30 5RF lactobacillus combination no.8 3 billion cell capsule See Rx Instructions PO DAILY Qty: 1 0RF Rx Instructions: 3 Billion PO daily; administer with a meal getting OTC magnesium oxide 400 mg magnesium tablet 400 mg PO BID Qty: 1 0RF Rx Instructions: Getting OTC paroxetine HCl 40 mg tablet See Rx Instructions .ROUTE .COMPLEX Qty: 30 11RF Dose Instruction: TAKE ONE TABLET BY MOUTH DAILY Rx Instructions: TAKE ONE TABLET BY MOUTH DAILY mirtazapine 15 mg tablet See Rx Instructions .ROUTE .COMPLEX Qty: 30 11RF Dose Instruction: TAKE ONE TABLET BY MOUTH AT BEDTIME Rx Instructions: TAKE ONE TABLET BY MOUTH AT BEDTIME acamprosate 333 mg tablet,delayed release (DR/EC) 666 mg PO TID Qty: 180 5RF rosuvastatin [Crestor] 20 mg tablet 20 mg PO DAILY Qty: 30 2RF Rx Instructions: Stop TriCor cholecalciferol (vitamin D3) 125 mcg (5,000 unit) capsule 250 mcg PO DAILY Qty: 60 2RF nitroglycerin 0.4 mg tablet, sublingual See Rx Instructions .ROUTE .COMPLEX Qty: 25 0RF Dose Instruction: DISSOLVE 1 TABLET UNDER THE TONGUE EVERY 5 MINUTES NEEDED FOR CHEST PAIN. DO NOT EXCEED A TOTAL OF 3 DOSES IN 15 MINUTES. Rx Instructions: DISSOLVE 1 TABLET UNDER THE TONGUE EVERY 5 MINUTES NEEDED FOR CHEST PAIN. DO NOT EXCEED A TOTAL OF 3 DOSES IN 15 MINUTES. Discharge Orders: Discharge ED (Routine); Ordered 06/16/24 Ordered By: Michael Casillas Referrals: Ivanna Harper FNP-C [Primary Care Provider] - 1-3 days Patient Instructions: Knee Sprain (ED), Meniscus Tear (ED), Opioid Safety, Pain Management Activity Restrictions/Additional Instructions: You may weight-bear as tolerated in the knee immobilizer when you are able. Try not to use the knee immobilizer more than 5 to 7 days. Call your doctor tomorrow for a follow-up appointment. Medication as needed for pain. Ice, particularly for the first 48 hours can help with pain and swelling. Print Language: Macedonian Coding Level of Care Code ED Production Technician for Carlos Goncalves
--- NOTE | 2024-06-16 19:36 | PC.NURSE ---
Pt sent home with [address] Casillas's order.
[2024-06-16 19:47] VITALS: BP 152/83; PULSE 66; RESP 16; O2SAT 96
== END 2024-06-16 19:48 | disposition home or self-care (01) ==
PROVIDERS: Emergency Provider Emergency Medicine; PCP Nurse Practitioner
DX: S89.92XA Unspecified injury of left lower leg, initial encounter (principal); E78.2 Mixed hyperlipidemia; W19.XXXA Unspecified fall, initial encounter
CPT/HCPCS: 29530; 73562; 96374; 96375; 99284; J2270; J2405

== ENCOUNTER → 2024-07-08 12:02 | Outpatient (BNVA) | payer MEDICARE, MEDICAID, SELFPAY | PROVIDERS: PCP Nurse Practitioner; Visit Provider Nurse Practitioner | DX: E55.9 Vitamin D deficiency, unspecified (principal); E78.1 Pure hyperglyceridemia; E03.8 Other specified hypothyroidism; K22.70 Barrett's esophagus without dysplasia; E78.2 Mixed hyperlipidemia; M79.605 Pain in left leg; I10 Essential (primary) hypertension; R19.7 Diarrhea, unspecified | CPT/HCPCS: 80061; 82306; 84443; 85025 ==

== ENCOUNTER → 2024-07-17 13:19 | Outpatient (BNVA) | payer MEDICARE, MEDICAID, SELFPAY | PROVIDERS: PCP Nurse Practitioner; Visit Provider Specialist | DX: M17.12 Unilateral primary osteoarthritis, left knee (principal); S89.92XA Unspecified injury of left lower leg, initial encounter; X58.XXXA Exposure to other specified factors, initial encounter | CPT/HCPCS: 73560; 73565; 99204 ==

== ENCOUNTER 2024-07-19 09:31 | Outpatient (CLI) | payer MEDICARE, MEDICAID, SELFPAY ==
--- NOTE | 2024-07-19 09:30 | MR_ITS ---
WS: [id number] MRI LEFT KNEE NONCONTRAST TECHNIQUE: Axial PD, coronal PD fat sat, coronal PD, sagittal PD, and sagittal PD fat-sat images obtained. CLINICAL INFORMATION: left knee injury COMPARISON: MRI 2006 FINDINGS: Moderate suprapatellar effusion. Advanced chondromalacia patella with a small amount of subchondral edema. Advanced tricompartmental arthritis. ACL and PCL appear intact. Lobulated septated popliteal cyst measuring 3.5 x 1.5 cm. This is new from previous. Progressed degenerative arthritis and joint space narrowing worse in the medial joint compartment. Grade IV chondromalacia medial joint compartment with a small amount of subchondral edema. Peripheral extrusion of the medial meniscus. Complex horizontal and radial tear involving the posterior horn medial meniscus extending to the articular surface. Lateral meniscus is intact. Soft tissue edema about the joint line. Prepatellar and popliteal fossa soft tissue edema. Normal lateral collateral ligament. Normal popliteus. Small amount of fluid and edema deep to the MCL compatible with grade 1-2 injury. MR/MR knee LT con* [id number] IMPRESSION: 1. Advanced tricompartmental arthritis progressed compared to previous. 2. Grade IV chondromalacia patella. Grade IV chondromalacia medial joint adam rtment. 3. Moderate suprapatellar effusion. 4. Lobulated popliteal cyst measuring 3.5 x 1.5 cm. 5. Complex tear posterior horn medial meniscus with horizontal and radial comp onents. Peripheral extrusion of the medial meniscus. 6. Grade 1-2 injury medial collateral ligament. 7. ACL and PCL appear intact with mucoid degeneration of the ACL. Outbridge grading: grade IV: full-thickness cartilage loss with underlying bone reactive changes
== END 2024-07-19 09:32 | disposition home or self-care (01) ==
PROVIDERS: PCP Nurse Practitioner; Visit Provider Specialist
DX: S83.222A Peripheral tear of medial meniscus, current injury, left knee, initial encounter (principal); X58.XXXA Exposure to other specified factors, initial encounter; M17.12 Unilateral primary osteoarthritis, left knee; M22.42 Chondromalacia patellae, left knee; M25.462 Effusion, left knee; M71.22 Synovial cyst of popliteal space [Baker], left knee; R93.6 Abnormal findings on diagnostic imaging of limbs
CPT/HCPCS: 73721

== ENCOUNTER 2024-07-31 11:45 | Outpatient (CLI) | payer MEDICARE, MEDICAID, SELFPAY | END 2024-07-31 11:46 | disposition home or self-care (01) | LOC: SPT 11:46 | PROVIDERS: PCP Nurse Practitioner; Visit Provider Specialist | DX: Z46.89 Encounter for fitting and adjustment of other specified devices (principal); M25.562 Pain in left knee | CPT/HCPCS: 20610; 97760; 99215; J1100; J2795; J3301; J9999; L1812 ==